=== PATIENT | male | born 1980 | race Caucasian/White ===

== ENCOUNTER 2018-12-16 04:32 | Emergency (ER) | payer OTHER, BC ==
[2018-12-16] MEDS: IBUPROFEN 200 MG TAB PO (05:24)
[2018-12-16] MEDS: PROMETHAZINE/DM (CUP) PO (05:33)
== END 2018-12-16 05:54 | disposition home or self-care (01) ==
LOC: FTE 04:32
DX: J06.9 Acute upper respiratory infection, unspecified (principal); J02.9 Acute pharyngitis, unspecified
CPT/HCPCS: 99283; Z7502